=== PATIENT | female | born 1965 | race Caucasian/White ===

== ENCOUNTER → 2016-09-17 | Outpatient (CLI) | payer OTHER | LOC: MC.RAD 13:53 | DX: Z12.31 Encounter for screening mammogram for malignant neoplasm of breast (principal) ==

== ENCOUNTER → 2017-10-26 | Outpatient (CLI) | payer OTHER | LOC: MC.RAD 07:00 | DX: Z12.31 Encounter for screening mammogram for malignant neoplasm of breast (principal) ==

== ENCOUNTER → 2018-11-23 | Outpatient (CLI) | payer OTHER | LOC: MC.RAD 13:33 | DX: Z12.31 Encounter for screening mammogram for malignant neoplasm of breast (principal); N63.22 Unspecified lump in the left breast, upper inner quadrant ==

== ENCOUNTER → 2018-11-28 | Outpatient (CLI) | payer OTHER | LOC: MC.RAD 07:30 | DX: D24.2 Benign neoplasm of left breast (principal) ==

== ENCOUNTER → 2019-02-27 | Outpatient (CLI) | payer OTHER | LOC: COL.VAS 13:24 | DX: I27.20 Pulmonary hypertension, unspecified (principal); I34.0 Nonrheumatic mitral (valve) insufficiency; I07.1 Rheumatic tricuspid insufficiency ==

== ENCOUNTER → 2020-04-12 | Outpatient (CLI) | payer OTHER | LOC: MC.RAD 09:15 | DX: Z12.31 Encounter for screening mammogram for malignant neoplasm of breast (principal) ==

== ENCOUNTER 2022-06-04 04:10 | Observation (INO) | payer OTHER ==
[~2022-06-04] VITALS: Ht 170.2 cm; Wt 100.0 kg
[2022-06-04 04:32] LABS: BASO % 0.3 % (0.0-2.0); EOS # 0.1 K/mm3 (0.0-0.7); EOS % 1.7 % (0.0-4.0); GRAN # 4.9 K/mm3 (1.4-6.5); GRAN % 62.7 % (42.2-75.2); HEMATOCRIT 39.5 % (37.0-47.0); HEMOGLOBIN 13.3 g/dl (12.5-16.0); LYMPH # 2.1 K/mm3 (1.2-3.4); LYMPH % 26.6 % (20.0-51.0); MEAN CELL VOLUME 91 fl (80.0-100.0); MEAN CORPUSCULAR HEMOGLOBIN 31 pg (27-31); MEAN CORPUSCULAR HGB CONC 34 g/dl (33.0-37.0); MEAN PLATELET VOLUME 9.4 fl (7.4-10.4); MONO # 0.7 K/mm3 (0.1-0.6); MONO % 8.4 % (1.7-9.3); PLATELET COUNT 231 K/mm3 (130-400); RED BLOOD COUNT 4.36 M/mm3 (4.10-5.30); REDCELL DISTRIBUTION WIDTH-CV 12.7 % (11.5-14.5)
[2022-06-04 04:42] LABS: INR 0.8 (0.8-3.0); PROTHROMBIN TIME 9.7 SECONDS (9.7-12.8)
[2022-06-04 04:43] LABS: PARTIAL THROMBOPLASTIN TIME 31.3 SECONDS (26.0-37.0)
[2022-06-04 04:52] LABS: ALANINE AMINOTRANSFERASE 21 U/L (0-55); ALBUMIN 4.1 gm/dL (3.5-5.0); ALKALINE PHOSPHATASE 57 U/L (40-150); ANION GAP 9 mmol/L (7-16); AST,SGOT 16 U/L (5-34); BILIRUBIN,TOTAL 0.8 mg/dL (0.2-1.2); BLOOD UREA NITROGEN 12 mg/dL (10-20); CALCIUM 9.2 mg/dL (8.4-10.2); CARBON DIOXIDE 23 mmol/L (22-29); CHLORIDE 106 mmol/L (98-107); CREATININE, serum 0.81 mg/dL (0.57-1.11); D-DIMER < 200.00 ng/mLDDu (200-230); GLUCOSE 95 mg/dL (70-99); LIPASE 54 U/L (8-78); POTASSIUM 3.7 mmol/L (3.5-4.5); SODIUM 138 mmol/L (136-145); TOTAL PROTEIN 7.5 gm/dL (6.2-8.1)
[2022-06-04 05:03] LABS: TROPONIN-I < 0.010 ng/mL (0.00-0.033)
[2022-06-04 08:17] VITALS: BP 132/63; PULSE 56; TEMP 97.7
--- NOTE | 2022-06-04 09:34 | NUR ---
SW met with the patient to discuss discharge plan. The patient lives in [place] with her , Agustin ([phone]), and their 18-year-old daughter. She reports independence with ADLs and does not have any DME. The patient's PCP is Dr. Fredi Tate and she receives her medications from [facility]. The patient does not have a DPOA-HC in EMR, but she states that she does have one completed and that it designates her . The patient plans to return home with her family upon discharge. No additional needs at this time. *Discharge plan: home with family*
[2022-06-04 11:14] VITALS: BP 148/59; PULSE 68; TEMP 97.8
[2022-06-04 15:15] VITALS: BP 123/51; PULSE 58; TEMP 97.5
[2022-06-04 15:34] VITALS: BP 154/67; PULSE 57; TEMP 97.4
[2022-06-04 19:27] VITALS: BP 130/69; PULSE 60; TEMP 98.2
--- NOTE | 2022-06-04 21:43 | NUR ---
Patient assessed around 1944. Denies having pain and discomfort. Voices no questions, needs, or concerns at this time. In bed with call light within reach.
[2022-06-04 23:07] VITALS: BP 134/58; PULSE 80; TEMP 97.9
[2022-06-05 03:50] VITALS: BP 127/56; PULSE 59; TEMP 98.2
[2022-06-05 06:04] LABS: BASO % 0.4 % (0.0-2.0); EOS # 0.2 K/mm3 (0.0-0.7); EOS % 2.2 % (0.0-4.0); GRAN # 4.1 K/mm3 (1.4-6.5); GRAN % 60.9 % (42.2-75.2); HEMOGLOBIN 12.3 g/dl (12.5-16.0); LYMPH % 29.8 % (20.0-51.0); MEAN CELL VOLUME 91 fl (80.0-100.0); MEAN CORPUSCULAR HEMOGLOBIN 31 pg (27-31); MEAN CORPUSCULAR HGB CONC 34 g/dl (33.0-37.0); MEAN PLATELET VOLUME 10.1 fl (7.4-10.4); MONO # 0.4 K/mm3 (0.1-0.6); MONO % 6.4 % (1.7-9.3); PLATELET COUNT 210 K/mm3 (130-400); RED BLOOD COUNT 4.02 M/mm3 (4.10-5.30); REDCELL DISTRIBUTION WIDTH-CV 12.7 % (11.5-14.5)
[2022-06-05 06:06] LABS: HEMATOCRIT 36.6 % (37.0-47.0)
[2022-06-05 06:19] LABS: ANION GAP 9 mmol/L (7-16); BLOOD UREA NITROGEN 10 mg/dL (10-20); CALCIUM 8.9 mg/dL (8.4-10.2); CARBON DIOXIDE 23 mmol/L (22-29); CHLORIDE 108 mmol/L (98-107); CREATININE, serum 0.72 mg/dL (0.57-1.11); GLUCOSE 89 mg/dL (70-99); POTASSIUM 4.1 mmol/L (3.5-4.5); SODIUM 140 mmol/L (136-145)
[2022-06-05 06:29] LABS: TROPONIN-I < 0.010 ng/mL (0.00-0.033)
--- NOTE | 2022-06-05 06:37 | NUR ---
Patient has denied pain and discomfort this shift. Voices no questions, needs, or concerns at this time. In bed with call light within reach.
--- NOTE | 2022-06-05 08:04 | NUR ---
PT AMBULATING AROUND ROOM INDEPENDENTLY. SHIFT ASSESSMENT COMPLETED. MORNING MEDICATIONS ADMINISTERED. PT DENIES ANY CHEST PAIN OR SOB. CALL LIGHT WITHIN REACH. WILL CONTINUE TO MONITOR.
[2022-06-05] MEDS ORDERED: ASPIRIN 81M81 MG/TA2 PO (08:23)
[2022-06-05 08:30] VITALS: BP 123/73; PULSE 68; TEMP 98.2
--- NOTE | 2022-06-05 09:43 | NUR ---
Initial visit; Patient thanked Program Manager [employer] for looking in on her, visiting and offering God's blessings as she prepares to be discharged home.
[2022-06-05] MEDS ORDERED: TOPROL XL 25MG25 MG PO (11:09)
[2022-06-05 11:31] VITALS: BP 132/66; PULSE 61; TEMP 97.5
--- NOTE | 2022-06-05 12:52 | NUR ---
DISCHARGE INSTRUCTIONS GIVEN, ALL QUESTIONS ANSWERED. IV AND TELE D/C. PT ESCORTED OFF OF UNIT BY VIA [facility] STAFF.
== END 2022-06-05 13:11 | disposition home or self-care (01) ==
LOC: COL.ER 04:10 → MEDICAL 07:47
PROVIDERS: Emergency Medicine; Physician Assistant; ADMIT Student in an Organized Health Care Education/Training Program
DX: I16.0 Hypertensive urgency (principal); I34.0 Nonrheumatic mitral (valve) insufficiency; I49.3 Ventricular premature depolarization; J45.909 Unspecified asthma, uncomplicated; Z79.899 Other long term (current) drug therapy
CPT/HCPCS: G0378; J3010; Q9967

== ENCOUNTER 2022-07-24 09:56 | Emergency (ER) | payer OTHER ==
[~2022-07-24] VITALS: Ht 170.2 cm; Wt 94.5 kg
[~2022-07-24 09:56] MED LIST: ASPIRIN 81M81 MG/TA2 PO; TOPROL XL 25MG25 MG PO
[2022-07-24 10:01] VITALS: TEMP 97.4
[2022-07-24 10:34] LABS: BASO % 0.5 % (0.0-2.0); EOS % 0.7 % (0.0-4.0); GRAN % 67.6 % (42.2-75.2); HEMATOCRIT 37.7 % (37.0-47.0); HEMOGLOBIN 12.3 g/dl (12.5-16.0); LYMPH # 1.5 K/mm3 (1.2-3.4); LYMPH % 25.4 % (20.0-51.0); MEAN CELL VOLUME 94 fl (80.0-100.0); MEAN CORPUSCULAR HEMOGLOBIN 31 pg (27-31); MEAN CORPUSCULAR HGB CONC 33 g/dl (33.0-37.0); MEAN PLATELET VOLUME 10.2 fl (7.4-10.4); MONO # 0.3 K/mm3 (0.1-0.6); MONO % 5.6 % (1.7-9.3); PLATELET COUNT 223 K/mm3 (130-400); RED BLOOD COUNT 4.02 M/mm3 (4.10-5.30); REDCELL DISTRIBUTION WIDTH-CV 12.6 % (11.5-14.5)
[2022-07-24 10:50] LABS: ALANINE AMINOTRANSFERASE 27 U/L (0-55); ALBUMIN 4.2 gm/dL (3.5-5.0); ALKALINE PHOSPHATASE 54 U/L (40-150); ANION GAP 12 mmol/L (7-16); AST,SGOT 16 U/L (5-34); BLOOD UREA NITROGEN 13 mg/dL (10-20); CALCIUM 9.8 mg/dL (8.4-10.2); CARBON DIOXIDE 22 mmol/L (22-29); CHLORIDE 107 mmol/L (98-107); CREATININE, serum 0.78 mg/dL (0.57-1.11); GLUCOSE 100 mg/dL (70-99); POTASSIUM 3.9 mmol/L (3.5-4.5); SODIUM 141 mmol/L (136-145); TOTAL PROTEIN 7.6 gm/dL (6.2-8.1)
[2022-07-24 11:04] LABS: BILIRUBIN,TOTAL 1.4 mg/dL (0.2-1.2)
[2022-07-24 11:08] LABS: TROPONIN-I < 0.010 ng/mL (0.00-0.033)
[2022-07-24 11:40] VITALS: BP 129/58; PULSE 47
== END 2022-07-24 11:40 | disposition home or self-care (01) ==
LOC: COL.ER 09:56
PROVIDERS: Physician Assistant
DX: R07.89 Other chest pain (principal); R00.1 Bradycardia, unspecified; T44.7X5A Adverse effect of beta-adrenoreceptor antagonists, initial encounter; I10 Essential (primary) hypertension; Z79.899 Other long term (current) drug therapy

== ENCOUNTER → 2023-04-13 | Outpatient (CLI) | payer OTHER | LOC: MC.RAD 14:18 | DX: Z12.31 Encounter for screening mammogram for malignant neoplasm of breast (principal) ==